=== PATIENT | male | born 1975 | race African-American/Black ===

== ENCOUNTER 2017-03-26 19:56 | Emergency (ER) | payer OTHER ==
[~2017-03-26] VITALS: Ht 190.5 cm; Wt 90.9 kg
[~2017-03-26 19:56] MED LIST: BACTRIM,SEPT1 TABLET PO; NAPROSYN500 MG PO; NOHOMEMEDS
[2017-03-26] MEDS ORDERED: NORCO 10/3251 TABLET PO (23:03)
[2017-03-26] MEDS ORDERED: INDOCIN50 MG PO (23:03)
[2017-03-26 23:23] VITALS: BP 155/85
== END 2017-03-26 23:24 | disposition home or self-care (01) ==
LOC: RME 19:56 → EME 19:56 → RME 23:24
DX: M10.9 Gout, unspecified (principal); F17.200 Nicotine dependence, unspecified, uncomplicated
CPT/HCPCS: 73630; 99281; 99285